=== PATIENT | female | born 1975 | race Two or more races ===

== ENCOUNTER → 2016-08-15 | Outpatient (CLI) | payer OTHER ==
--- NOTE | ~2016-08-15 | MY11 ---
[facility] A Service of [facility] RADIOLOGY TEXT RESULTS PATIENT: SEAN HENRY LOCATION: [facility] : 75 UNIT #: [id number] AGE: [address]: ARIANA CHOWDARY APRN SEX: F ORDER DR: [id number] [facility]. [place], [place] [address] [id number] O MR#: [id number] Acc #: [id number] NAME: SEAN HENRY : 1975 SEX: F STUDY DATE/TIME: 08/15/2016 14:55 UNIT: [facility] ROOM: STUDY DESCRIPTION: MY Mammogram Screening Dig Giovany Attending Physician: Sunny Chowdary M.D. Ordering Physician: Sunny Chowdary M.D. Primary Care Physician: Jeremy Bravo M.D. MEDICAL IMAGING REPORT This report is preliminary unless electronic signature is present EXAM Bilateral Digital Screening Mammogram with CAD INDICATION Breast cancer screening. 41-year-old asymptomatic female. No personal or family history of breast cancer. COMPARISON August 11, 2015, May 13, 2008 FINDINGS There are scattered fibroglandular tissues. No suspicious findings are present. IMPRESSION No mammographic evidence of malignancy. Annual screening mammography and clinical breast exam are recommended. A result letter will be sent to the patient. Patients over the age of 40 are entered into a reminder system with target due date for the next mammogram. BIRADS: 1 Negative Dictated by... Sadi Bahena M.D. THIS IS AN ELECTRONICALLY VERIFIED REPORT [facility] A Service of [facility] RADIOLOGY TEXT RESULTS PATIENT: SEAN HENRY LOCATION: [facility] : 75 UNIT #: [id number] AGE: [address]: ARIANA CHOWDARY APRN SEX: F ORDER DR: Sadi Bahena M.D. at 08/18/2016 6:33 PM BLM/psc TD: 08/15/2016 21:39 JOB #: [id number] MEDICAL IMAGING REPORT COPY
== END | disposition home or self-care (01) ==
LOC: CWCC 14:29
DX: Z12.31 Encounter for screening mammogram for malignant neoplasm of breast (principal)
CPT/HCPCS: G0202